=== PATIENT | female | born 1945 | race Caucasian/White ===

== ENCOUNTER 2018-12-29 13:47 | Emergency (ER) | payer MEDICARE ==
[2018-12-29 14:54] LABS: INR-International Normal Ratio 2.3; Prothrombin Time 25.1 SEC (12.0-14.7)
== END 2018-12-29 15:10 | disposition home or self-care (01) ==
LOC: ERS 13:47
DX: R79.1 Abnormal coagulation profile (principal); I48.91 Unspecified atrial fibrillation; J44.9 Chronic obstructive pulmonary disease, unspecified; K58.9 Irritable bowel syndrome, unspecified
CPT/HCPCS: 36415; 85610; 99283

== ENCOUNTER 2019-02-11 18:07 | Inpatient (IN) | payer MEDICARE ==
[~2019-02-11 18:07] MED LIST: Iopamidol 300 61% 100 ML VIAL FS ONE
[2019-02-11] MEDS ORDERED: Ondansetron PF 4 MG/2 ML Vial ONE (18:44)
[2019-02-11] MEDS ORDERED: Morphine 4 MG/ML VIAL ONE (18:44)
--- NOTE | 2019-02-11 19:25 | RAD ---
FRONTAL RADIOGRAPH CHEST: 02/11/2019 HISTORY: Pain and bloating. COMPARISON: None. FINDINGS: Heart and mediastinal contours are grossly unremarkable. No pneumothorax or pleural fluid. No focal consolidation or alveolar edema. IMPRESSION: No acute findings. POS: TUTU
[2019-02-11 19:34] LABS: #Lymphocytes 0.9 thou/uL (1.20-3.40); #Monocytes 0.3 thou/uL (0.11-0.59); #Neutrophils 4.8 thou/uL (1.40-6.50); %Basophils 0.5 % (0.0-1.0); %Eosinophils 0.3 % (0.0-10.0); %Lymphocytes 15.6 % (21.0-51.0); %Monocytes 4.2 % (0.0-10.0); %Neutrophils 79.4 % (42.0-75.0); Hemoglobin 10.4 g/dL (12.0-16.0); Mean Corpuscular HGB CONC 30.9 g/dL (32.0-36.0); Mean Corpuscular Hemoglobin 29.3 pg (27.0-31.0); Mean Corpuscular Volume 94.8 fL (78.0-98.0); Mean Platelet Volume 7.3 fL (7.4-10.4); Platelet Count 232 thou/uL (130-400); Red Blood Cell (RBC) Count 3.53 mill/uL (4.20-5.40)
[2019-02-11 19:43] LABS: ALT (SGPT) 37 U/L (8-55); AST (SGOT) 45 U/L (5-34); Albumin 3.9 g/dL (3.4-4.8); Alkaline Phosphatase 77 U/L (40-150); Anion Gap 18 mmol/L (10-20); BUN (Urea Nitrogen) 10 mg/dL (9.8-20.1); Bilirubin, Total 0.4 mg/dL (0.2-1.2); Calc. Creatinine Clearance 0 mL/min (70-130); Calcium 8.9 mg/dL (7.8-10.44); Carbon Dioxide 26 mmol/L (23-31); Chloride 107 mmol/L (98-107); Estimated GFR-MDRD 65; Globulin 2.7 g/dL (2.4-3.5); Glucose 141 mg/dL (83-110); Lipase 39 U/L (8-78); Potassium 3.6 mmol/L (3.5-5.1); Protein, Total 6.6 g/dL (6.0-8.3); Sodium 147 mmol/L (136-145)
[2019-02-11 19:44] LABS: PTT 22.4 SEC (22.9-36.1); Prothrombin Time 13.6 SEC (12.0-14.7)
--- NOTE | 2019-02-11 21:34 | CT ---
CT OF THE ABDOMEN AND PELVIS WITH IV CONTRAST INDICATION: Abdominal pain and nausea after EGD and colonoscopy today; history of gastric bypass COMPARISON: None FINDINGS: ABDOMEN: Lung bases: There is bibasilar atelectasis more prominent within the right middle lobe. Liver: The gallbladder is surgically absent. There is moderate intrahepatic and extra hepatic biliary ductal dilatation. Gallbladder: Surgically absent Pancreas: Normal. Adrenal glands: Normal. Spleen: There is a large perisplenic hematoma measuring 8.5 x 10.2 cm. There is active extravasation along the superior lateral margin of this lesion. Kidneys: Normal. Retroperitoneum of the upper abdomen: No lymphadenopathy or free fluid is identified. Pelvis: Small and large bowel: There is postsurgical change of a gastric bypass. Bladder: Normal. Rectal and perirectal soft tissues:Normal. Reproductive structures: Not visualized Free fluid in pelvis: There is moderate amount of mildly hypodense fluid in the abdomen and pelvis. I ts relative density is 9 Hounsfield units. Lymphadenopathy pelvis: No lymphadenopathy is evident. Osseous structures: No acute osseous abnormality. No destructive osteolytic or osteoblastic lesion i s identified. There is scattered degenerative and osteoarthritic changes. Mild thoracolumbar scoliosis. IMPRESSION: 1. Large perisplenic hematoma with active extravasation. Findings called to Dr. Davidson at 9:25 PM on 2018. 2. Moderate amount of free fluid within the abdomen or pelvis is nonspecific. With its relative densi ty being below 10 this is unlikely to be hemorrhage. 3. Bibasilar atelectasis 4. Cholecystectomy, hysterectomy and gastric bypass.
[2019-02-11 22:15] LABS: #Lymphocytes 0.6 thou/uL (1.20-3.40); #Monocytes 0.4 thou/uL (0.11-0.59); #Neutrophils 8.6 thou/uL (1.40-6.50); %Basophils 0.4 % (0.0-1.0); %Monocytes 3.7 % (0.0-10.0); %Neutrophils 89.9 % (42.0-75.0); Hemoglobin 8.4 g/dL (12.0-16.0); Mean Corpuscular HGB CONC 32.4 g/dL (32.0-36.0); Mean Corpuscular Hemoglobin 29.6 pg (27.0-31.0); Mean Corpuscular Volume 91.3 fL (78.0-98.0); Mean Platelet Volume 8.4 fL (7.4-10.4); Platelet Count 225 thou/uL (130-400); RBC Distribution Width 16.3 % (11.5-14.5); Red Blood Cell (RBC) Count 2.85 mill/uL (4.20-5.40); White Blood Cell (WBC) Count 9.6 thou/uL (4.8-10.8)
[2019-02-11 23:27] LABS: Lactic Acid 2.8 mmol/L (0.5-2.2)
[2019-02-12] MEDS ORDERED: Ondansetron PF 4 MG/2 ML Vial IVP PRN ×3 (00:52→07:50)
[2019-02-12] MEDS ORDERED: Morphine 2 MG/ML SYRINGE SLOW IVP PRN ×2 (00:52→08:57)
[2019-02-12 01:00] VITALS: BP 142/80; BMI 26.6
[2019-02-12] MEDS ORDERED: Dextrose 5 %-0.45 % NaCl 1,000 ML IV SCH (01:00)
[2019-02-12 02:40] LABS: Hemoglobin 7.8 g/dL (12.0-16.0)
[2019-02-12 05:20] LABS: #Lymphocytes 0.5 thou/uL (1.20-3.40); #Monocytes 0.3 thou/uL (0.11-0.59); #Neutrophils 5.9 thou/uL (1.40-6.50); %Basophils 0.3 % (0.0-1.0); %Eosinophils 0.3 % (0.0-10.0); %Lymphocytes 7.7 % (21.0-51.0); %Monocytes 4.3 % (0.0-10.0); %Neutrophils 87.4 % (42.0-75.0); Hemoglobin 7.1 g/dL (12.0-16.0); Mean Corpuscular HGB CONC 32.3 g/dL (32.0-36.0); Mean Corpuscular Hemoglobin 30.1 pg (27.0-31.0); Mean Corpuscular Volume 93.1 fL (78.0-98.0); Mean Platelet Volume 8.6 fL (7.4-10.4); Platelet Count 191 thou/uL (130-400); RBC Distribution Width 15.8 % (11.5-14.5); Red Blood Cell (RBC) Count 2.35 mill/uL (4.20-5.40); White Blood Cell (WBC) Count 6.8 thou/uL (4.8-10.8)
[2019-02-12] MEDS ORDERED: Acetaminophen 1,000 MG in Premix Bag 1 BAG IVPB PRN ×2 (06:28→07:46)
[2019-02-12] MEDS ORDERED: Acetaminophen 1,000 MG in Premix Bag 1 BAG IVPB SCH (06:30)
[2019-02-12] MEDS ORDERED: Morphine 4 MG/ML VIAL SLOW IVP PRN (07:43)
[2019-02-12] MEDS ORDERED: Ondansetron ODT 4 MG TAB PO PRN (07:43)
[2019-02-12] MEDS ORDERED: Ondansetron ORAL SOLN. 4 MG/5 ML UDCUP PO PRN (07:43)
[2019-02-12] MEDS ORDERED: Ondansetron ODT 8 MG TAB PO PRN (07:43)
[2019-02-12] MEDS ORDERED: Ondansetron ODT 8 MG TAB SL PRN (07:43)
[2019-02-12] MEDS ORDERED: Ketorolac Tromethamine 30 MG/ML VIAL IVP PRN (07:46)
[2019-02-12] MEDS ORDERED: Multivit, Adult Inj 10 ML VIAL IV SCH (09:00)
[2019-02-12] MEDS ORDERED: Iopamidol 370 76% 100 ML VIAL ONE (09:09)
--- NOTE | 2019-02-12 09:16 | CON ---
DATE OF CONSULTATION: 02/11/2019 REASON FOR CONSULT: Splenic hematoma post procedure. HISTORY OF PRESENT ILLNESS: Ms. Diaz is a pleasant 73-year-old female, most history comes from talking with her [id number] and son. Ms. Diaz underwent an EGD and colonoscopy today with Dr. Abad for chronic diarrhea. She carried a previous diagnosis of irritable bowel with diarrhea predominant and saw him in January with regard to worsening symptoms despite being on Colestid. Her last colonoscopy had been over 2 years ago. An upper endoscopy with lower endoscopy was performed to evaluate her diarrhea and for colorectal cancer screening, anticipation of possibly changing her medical regimen. She underwent the procedure today and after procedure, in a pain, they came to the emergency room this evening and she initially had a chest x-ray and CAT scan at 1823 hours. The chest x-ray was normal. CAT scan showed splenic hematoma with perisplenic hematoma and some active oozing from the superior lateral margin of the spleen. Hematoma measured 8 x 10 cm. There was some fluid in the pelvis as well. Radiologist felt a small amount of fluid in the abdomen and pelvis, was nonspecific, and with low density below 10, also did not think it was hemorrhage. She also had change consistent of gastric bypass. Her vital signs have been stable since presentation here at the emergency room. Hemoglobin was 12.6 on 01/29 and it was 10.4 on presentation and at 2153 hours, it is 8.4. Platelet count was 225. White count was 9.6. Her INR was 1. She had been on Coumadin for atrial fibrillation but that had been held for the procedure. She had one dose this evening when she got home, however. Sodium 147, potassium 3.6, BUN and creatinine are 10 and 0.85. LFTs are normal. TSH on 01/29/2019, was 29. 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 She is hypothyroid from previous thyroid removal. Her TSH was high in January and her thyroid dose was increased. Mild dementia. PAST SURGICAL HISTORY: Includes tonsillectomy, thyroidectomy for cancer in 1967, bladder suspension in 1974, breast biopsy benign in 1979, D and C in 1986, hysterectomy in 1988, left breast biopsy negative in 1990, gallbladder removal in 1991, neuroma of the right foot removed in 1994, gastric bypass in 2000, total right knee replacement in 2010, parathyroid adenoma removed in 2010, bladder sling in 2016, infection in the right knee with revision surgery of that knee replacement in 2018. Removed cataract from right eye in 2019. ALLERGIES: , LUCAS INHIBITORS, AND MOUNTAIN CEDAR. PROCEDURES: Colonoscopy in 2013 and 2019, heart catheterization in 2013, and doppler carotid in 2015. IMMUNIZATIONS: Up-to-date with pneumonia and PCV13 and flu shots. PRESCRIPTION MEDICATIONS: 1. Synthroid was increased from 112 to 175. 2. Cholestyramine 4 g daily. 3. Potassium chloride. 4. Losartan 25 mg daily. 5. Metoprolol 25 mg daily. 6. Warfarin 7.5 mg, has been held. 7. Loperamide p.r.n. 8. Multivitamin. 9. Pravastatin. 10. Magnesium. 11. Donepezil. 12. Montelukast. 13. Zyrtec. 14. Uses Symbicort p.r.n. and melatonin at night as needed. FAMILY HISTORY: Negative for colorectal cancer or liver disease. SOCIAL HISTORY: The patient denies smoking. No alcohol. PHYSICAL EXAMINATION: GENERAL: The patient is resting in bed. She appears pale. Her family notes that this is her normal appearance. VITAL SIGNS: Her pulse is 90, blood pressures 120s over 80s. She has one IV in place with IV fluid hanging. She is alert and oriented. HEENT: Oropharynx, no lesions. Conjunctivae are slightly pale. NECK: Supple without adenopathy. LUNGS: Clear. HEART: Irregular rate and rhythm with no murmurs. ABDOMEN: Soft. She is tender in the upper abdomen with some voluntary guarding. There is no rebound. Bowel sounds are positive. EXTREMITIES: Reveal trace edema. SKIN: Warm and dry. IMAGING DATA: CAT scan films reviewed by myself, report as noted in [place] and the HPI above. Films were reviewed with General Surgery and discussed with Dr. Gandhi, who is on-call tonight. LABORATORY DATA: As per HPI above. ASSESSMENT: 1. Splenic hematoma, likely complication from colonoscopy earlier today with perisplenic hematoma and fluid in the pelvis, which radiologist does not feel blood but very likely could be. She is hemodynamically stable and has been so since arrival here in the emergency room. Her hemoglobin has dropped to 8.4 from 10.4 on arrival, was 12.6 on 01/29/2019. Platelets are stable. INR is normal. I have discussed with General Surgery the fact that there was some active extravasation of contrast at the edge of the spleen and notes that at this point in time, observation, this will course of action will move her admission from the floor to the ICU or IMU depending on bed availability in any of those units. We will plan to check serial H and Hs every 4 hours. She has been typed and crossed. If she is hemodynamically unstable or drops hemoglobin lower than 7, she will need transfusion. I have discussed this with the patient and family. Also discussed potential need for surgery if she continues to have bleeding and which would require splenectomy. 2. History of atrial fibrillation, previously on anticoagulation. This was held for endoscopy and her INR is 1 at this time. We will recheck this in the morning. 3. Hypothyroidism with recent dose adjustment of TSH based on a TSH of 24 about a month ago. 4. Mild dementia. 5. Chronic diarrhea, for which her endoscopies were done. GI Service will follow along during this admission. She is being admitted to Dr. Gandhi of General Surgery. Job ID: [id number]
--- NOTE | 2019-02-12 09:34 | HP ---
HISTORY OF PRESENT ILLNESS: Emily Diaz is a 73-year-old female who in the last 2 to 3 months has moved from [facility] to live with her family. Her grlpsdib-kd-dqb and son live in [place]. They were working full-time and students. The patient is on Coumadin for atrial fibrillation, but has held that in preparation for upper and lower endoscopy performed by Dr. Abad yesterday morning. After the procedure, the patient was having some pain. Apparently, it was observed in the [facility], then sent home. She began having more pain and presented to the emergency room in [place] late afternoon at 4 or 5 p.m., and apparently by 9 p.m., she finished a CAT scan with oral IV contrast, noting perisplenic hematoma. Her hemoglobin was 10.4. Since observation, by this morning has dropped down to 7.1. Her vital signs have been stable. She states she is not having any pain as long as she lays still. She has had some nausea and suffered anorexia, but not had any vomiting. She has been admitted to the [facility]. Last night, Dr. Degroot saw her in [place] [facility] before being transferred to the [facility]. Her vital signs as noted above, have been stable. This morning, temperature 98.4 degrees, heart rate 100, respiratory rate 14, blood pressure 142/80, and she has not received any blood transfusions. ALLERGIES: LUCAS INHIBITORS AND . SOCIAL HISTORY: Tobacco, none. Alcohol, none. MEDICATIONS: 1. Synthroid 175 mcg a day. 2. Cholestyramine daily. 3. Potassium chloride 10 mEq ER tab twice daily. 4. Losartan 25 mg a day. 5. Metoprolol 25 mg a day. 6. Coumadin 7.5 mg a day. 7. Loperamide as needed. 8. Multivitamins daily. 9. Pravastatin 10 mg at bedtime. 10. Magnesium 250 daily. 11. Donepezil 10 mg two at night. Apparently, wean off this as a lasting hydrochloride twice a day. 12. Breo Ellipta 100 mcg once daily. 13. Zyrtec daily. 14. Symbicort spray as needed. PAST MEDICAL HISTORY: 1. Mitral valve prolapse, atrial fibrillation. She has been followed by mold tooling technician. Apparently, had a stress test in the past that had been negative. She has been seeing Dr. Palma locally, and she states they are planning a stress test in the future. She denies any cardiac symptomatology. 2. Atrial fibrillation since 2012. 3. TIA in May 2015. 4. History of shingles. 5. History of hypoglycemia. PROCEDURES: 1. Colonoscopy, upper endoscopy in 2018. 2. Mammogram in 2013. 3. Pap smear in June 2010. 4. Bone density in 2013. 5. Pneumonia shot in April 2010. 6. Cardiac catheterization in February 2014 that was told there was no significant disease. 7. Doppler carotids in 2015, no flow-limiting disease according to her. PAST SURGICAL HISTORY: Tonsillectomy and adenoidectomy in 1949 and 1967. Thyroidectomy, total over several operations for thyroid cancer in 1974. Bladder suspension in 1979. Biopsy, left breast, benign, in 1986. D and C in 1988. Hysterectomy, BSO in 1990. Biopsy, left breast, negative in 1991. Cholecystectomy, laparoscopic, in 1994. Neuroma, right foot, removal in 2000. Gastric bypass, laparoscopically, lost from 300 pounds to her current weight of 150 pounds when she has maintained. Total right knee replacement, removal of parathyroid adenoma in 2010. Bladder sling in 2016. Revision surgery, right knee, due to infection. Cataract in 2019, right eye. REVIEW OF SYSTEMS: Ten-point noncontributory. PHYSICAL EXAMINATION: VITAL SIGNS: Temperature 98.4, blood pressure 142/80. HEAD, EYES, EARS, NOSE, AND THROAT: Unremarkable. LUNGS: Clear to auscultation. CARDIAC: Regular rate and rhythm. No murmur or gallop. ABDOMEN: Soft, nondistended. No hernias. Laparoscopic scars as noted above consistent with above-mentioned surgeries. Mild tenderness, left abdomen with mild guarding. Deep palpation. No rebound. EXTREMITIES: Unremarkable. No ankle edema. NEUROLOGIC: Intact. Alert and oriented x3. DIAGNOSTIC STUDIES: LABORATORY RESULTS: Sodium 147, potassium 3.6, carbon dioxide 26, BUN 10, creatinine 0.85, and glucose 141. Liver function tests are normal. Hemoglobin admission was 10.4, is 7.1 today. No prior labs in our system. ASSESSMENT AND PLAN: 1. Splenic bleeding, secondary to colonoscopy. Continue relative bedrest. May have bathroom privileges at bedside commode. Observe serial hemoglobins. Hopefully, we can avoid an operation. There are no indications of colon perforation. Antibiotics are not necessary. We would continue to monitor hemoglobin. Considerations for embolization can be given if there is evidence of continued bleeding. She may need a transfusion, but at this time she does not. We will keep her n.p.o. except for ice chips given her medications as necessary, holding her antihypertensive, but given her beta annie. Of course, we will hold her Coumadin. Her INR was normal last night. She took one dose of Coumadin yesterday after the procedure, but has been held since INR is normal. 2. Atrial fibrillation, followed by Dr. Palma. No evidence of problems currently. 3. History of gastric bypass. 4. Hypothyroidism, treated medically. 5. Irritable bowel syndrome. 6. History of meningioma. Job ID: [id number]
[2019-02-12 09:46] LABS: Hemoglobin 7.3 g/dL (12.0-16.0)
[2019-02-12] MEDS: Multivitamins, Adult 10 ML in D5 1/2 NS w/20 mEq KCL 1,000 ML IV SCH (09:53)
[2019-02-12] MEDS: Pantoprazole 40 MG VIAL IVP SCH (09:55)
[2019-02-12] MEDS: D5 1/2 NS w/20 mEq KCL 1,000 ML IV SCH ×2 (10:12→20:00)
[2019-02-12 13:23] LABS: Hemoglobin 6.4 g/dL (12.0-16.0)
--- NOTE | 2019-02-12 14:16 | PRG ---
DATE OF SERVICE: 02/12/2019 SUBJECTIVE: Ms. Diaz is feeling pretty well today. She has remained hemodynamically stable. She denies any abdominal pain, though she has not been moving around much. There has been no vomiting. Her hemoglobin continued to decline overnight, but seemed to stabilize this morning, trended down to 7.8 at 2:00 a.m., then 7.1 at 5:00 a.m., now 7.3. Repeat blood draw is pending. Dr. Gandhi has seen the patient and has opted for observation for now. She has not required transfusion as yet. OBJECTIVE: VITAL SIGNS: Temperature 98.0, pulse 75, blood pressure 109/65, and 100% oxygen saturation on room air. GENERAL: No acute distress. HEART: Regular rate and rhythm. LUNGS: Clear to auscultation bilaterally. ABDOMEN: Mild tenderness to palpation in the left upper quadrant, but no guarding or rebound tenderness. Bowel sounds are present. EXTREMITIES: No peripheral edema. LABORATORY STUDIES: Hemoglobin trended down to 7.3 as of 9:30 a.m. this morning , hematocrit 22.6, WBC 6.8, platelets 191. INR 1.0. Sodium 147, potassium 3.6, BUN 10, creatinine 0.85. Lactic acid 2.8, glucose 150, total bilirubin 0.4, alkaline phosphatase 77, AST 45, ALT 37, and lipase 39. IMAGING STUDIES: CT of the abdomen and pelvis yesterday evening on admission demonstrated large perisplenic hematoma measuring 8.5 x 10.2 cm. There was evidence of active extravasation along the superior lateral margin of the lesion. There was a moderate amount of free fluid in the pelvis, but with low relative density felt unlikely to be hemorrhage. There was no evidence of free air or perforation. ASSESSMENT AND PLAN: 1. Splenic injury, secondary to diagnostic colonoscopy performed yesterday. 2. Acute blood loss anemia, secondary to bleeding with perisplenic hematoma. I appreciate the assistance of Dr. Gandhi, who is following along closely as well. The patient has had significant blood loss with overall decline in hemoglobin from 12.5 a couple of weeks ago, to 10.6 on admission, down to 7.3 this morning. Hopefully, the hemoglobin and hematocrit will continue to be stable, but continue to watch very closely, monitor every 4 hours. I would favor transfusion if hemoglobin were to further decline significantly. If the patient has continued decline in hemoglobin or were to develop any hemodynamic instability or worsening symptoms, I think splenectomy or embolization might be necessary. Otherwise, continue close observation. We will discuss with Dr. Gandhi. I spoke on the phone with the patient's [id number], Elodia, as well. Please call anytime with questions or concerns or changes in the patient's clinical status. Job ID: [id number] MTDD
[2019-02-12] MEDS ORDERED: Lidocaine 1% (PF) 30 ML VIAL ONE (15:44)
--- NOTE | 2019-02-12 18:36 | PRG ---
DATE OF SERVICE: 02/12/2019 Today, Emily Diaz's hemoglobin had drifted down to 6.4. Her vital signs remained stable. Heart rate 68, blood pressure 105 to 110 systolic. The patient reports decreased pain. She denies any other symptoms. She has been essentially bedrest since this event. Abdomen remains soft. I discussed with the patient and then with the patient's daughter, Gabi Umana, , her condition, explained the situation. With her ongoing diminishing progressive hemoglobin from splenic bleeding after colonoscopy, Dr. Ayers was consulted to perform interventional embolization of the spleen. The patient and family are agreeable. The patient will be given 1 unit of blood during the procedure and will continue to monitor hemoglobin. Job ID: [id number]
[2019-02-12 19:21] LABS: Hemoglobin 8.5 g/dL (12.0-16.0)
[2019-02-12] MEDS ORDERED: Prevnar 13-Val Conj/PF 0.5 ML SYRINGE IM ONE (21:00)
[2019-02-12 23:58] LABS: Hemoglobin 7.8 g/dL (12.0-16.0)
[2019-02-13 06:26] LABS: #Lymphocytes 1.2 thou/uL (1.20-3.40); #Monocytes 0.4 thou/uL (0.11-0.59); #Neutrophils 3.7 thou/uL (1.40-6.50); %Basophils 0.2 % (0.0-1.0); %Eosinophils 0.6 % (0.0-10.0); %Monocytes 7.4 % (0.0-10.0); %Neutrophils 68.8 % (42.0-75.0); Mean Corpuscular Hemoglobin 30.6 pg (27.0-31.0); Mean Corpuscular Volume 90.2 fL (78.0-98.0); Mean Platelet Volume 8.3 fL (7.4-10.4); Platelet Count 156 thou/uL (130-400); RBC Distribution Width 16.8 % (11.5-14.5); Red Blood Cell (RBC) Count 2.62 mill/uL (4.20-5.40); White Blood Cell (WBC) Count 5.4 thou/uL (4.8-10.8)
[2019-02-13 06:47] LABS: ALT (SGPT) 21 U/L (8-55); AST (SGOT) 26 U/L (5-34); Albumin 3.5 g/dL (3.4-4.8); Alkaline Phosphatase 67 U/L (40-150); Anion Gap 12 mmol/L (10-20); BUN (Urea Nitrogen) 8 mg/dL (9.8-20.1); Bilirubin, Total 0.5 mg/dL (0.2-1.2); Calc. Creatinine Clearance 69 mL/min (70-130); Calcium 8.4 mg/dL (7.8-10.44); Carbon Dioxide 26 mmol/L (23-31); Chloride 107 mmol/L (98-107); Estimated GFR-MDRD 70; Glucose 153 mg/dL (83-110); Magnesium 1.5 mg/dL (1.6-2.6); Phosphorus 2.4 mg/dL (2.3-4.7); Potassium 3.6 mmol/L (3.5-5.1); Protein, Total 5.5 g/dL (6.0-8.3); Sodium 141 mmol/L (136-145)
[2019-02-13] MEDS: Levothyroxine 175 MCG TAB PO SCH (06:50)
[2019-02-13] MEDS: D5 1/2 NS w/20 mEq KCL 1,000 ML IV SCH (06:50)
[2019-02-13] MEDS: Pantoprazole 40 MG VIAL IVP SCH (08:53)
[2019-02-13] MEDS ORDERED: Non-Formulary Item 1 EACH (Budesonide-Formoterol [Symbicort 160-4.5] 1 PUFF) INH PRN (09:49)
--- NOTE | 2019-02-13 09:50 | OP ---
DATE OF PROCEDURE: 02/12/2019 PREOPERATIVE DIAGNOSIS: Splenic rupture. PROCEDURE: Abdominal aortogram, celiac and selective splenic artery angiograms, and coil embolization of the main splenic artery using 3 x 6 coils x3 and a 4 x 8 coil x1. ANESTHESIA: Local. DESCRIPTION OF PROCEDURE: After prepping and draping, ultrasound-guided puncture of the common femoral artery was carried out. A 5-Greenlandic dilator and sheath were placed under fluoroscopic guidance following which a Contra catheter was used in AP and lateral projections to delineate the celiac and superior mesenteric artery trunks, both of which were widely patent. Following this, the Contra catheter and Glidewire were used to selectively cannulate the celiac artery. This was abandoned after dislocation and a MESFIN catheter was used to selectively cannulate the celiac artery. A Direxion catheter was then advanced through the MESFIN catheter as far as it would go through a very tortuous and elongated splenic artery. A 0.014 Luge and 0.014 floppy were used to advance the Direxion catheter slightly farther. However, it would not advanced distally due to kicking back of the MESFIN catheter. At that time, it was elected with no obvious extravasation to go ahead and embolize the main splenic artery, which was done with interlock coils as noted above. Completion angiography showed good flow through the hepatic artery and continued flow through the splenic artery. The patient tolerated the procedure well with fluoroscopy of 13.8 minutes. CONTRAST: 28 mL. Job ID: [id number]
--- NOTE | 2019-02-13 10:04 | PRG ---
DATE OF SERVICE: 02/13/2019 SUBJECTIVE: Ms. Diaz underwent splenic artery embolization yesterday afternoon with Dr. Ayers. She reports this morning that she is not having any pain. She tolerated a full liquid breakfast and wants more solid food. Her hemoglobin this morning is 8. She received 1 unit of blood yesterday. After that 1 unit of blood, her hemoglobin was 7.8, and as stated above at 8 this morning, white count 5.4. Renal function is normal. OBJECTIVE: LUNGS: Clear to auscultation. CARDIAC: Regular rate and rhythm. No murmur or gallop. ABDOMEN: Soft, nontender. EXTREMITIES: Unremarkable. ASSESSMENT AND PLAN: A splenic bleeding after colonoscopy, status post embolization of the spleen. We will increase her diet today, increase her activities about the room. Hopefully, she can be discharged home in the next 24 to 48 hours. Hemoglobin seems to be stable at this point. Job ID: [id number]
--- NOTE | 2019-02-13 13:03 | PRG ---
DATE OF SERVICE: 02/13/2019 SUBJECTIVE: Ms. Diaz went for splenic artery embolization yesterday with Dr. Ayers. There was no active extravasation noted. The splenic artery was quite tortuous. Four coils were placed with good result. She received 1 unit of blood yesterday and hemoglobin came up from 6.4 to 7.8 and is stable this morning at 8.0. She remains hemodynamically stable. She is now asymptomatic with no abdominal pain. She is tolerating her regular diet without any nausea or vomiting. She did have a bowel movement. OBJECTIVE: VITAL SIGNS: Temperature 99.2, pulse 82, 100% oxygen saturation on room air. GENERAL: No acute distress. HEART: Regular rate and rhythm. LUNGS: Clear to auscultation bilaterally. ABDOMEN: Soft, nontender. EXTREMITIES: No peripheral edema. LABORATORY STUDIES: Hemoglobin 8.0, stable from last night; WBC 5.4; platelets 156. INR 1.0. Sodium 141, potassium 3.6, BUN 8, creatinine 0.80, total bilirubin 0.5, alkaline phosphatase 67, AST 26, ALT 21, albumin 3.5. TSH 39.97. ASSESSMENT AND PLAN: 1. Splenic injury, secondary to diagnostic colonoscopy performed on 02/11/2019. 2. Acute blood loss anemia, secondary to bleeding with perisplenic hematoma. After 1 unit of RBC transfusion yesterday, hemoglobin appears stable today. I greatly appreciate the assistance of Dr. Gandhi and Dr. Ayers. Following splenic artery embolization yesterday, I see no evidence of continued bleeding, but certainly agree with continued observation and monitoring of hemoglobin and hematocrit. Hopefully, the patient could be discharged in the next 24 to 48 hours if everything remains stable tomorrow. I spoke with the patient as well as her daughter on the phone today. The patient needs to avoid any heavy exertion or any activities with the potential for any abdominal trauma over the next few weeks. She will be restarting her anticoagulation once hemoglobin has been stable for a few days. 3. We are also awaiting stool studies and biopsy results from her colon biopsies. We will communicate those results to the patient when they are available. Job ID: [id number]
[2019-02-13] MEDS ORDERED: Loperamide HCl 2 MG CAP PO PRN (14:44)
[2019-02-13 16:34] LABS: Hemoglobin 7.8 g/dL (12.0-16.0)
[2019-02-13] MEDS: Multivitamins, Adult 10 ML in D5 1/2 NS w/20 mEq KCL 1,000 ML IV SCH (18:21)
[2019-02-13] MEDS: Mometasone/Formoterol 120 PUFF INHALER INH SCH (18:56)
[2019-02-13] MEDS: Pravastatin Sodium 20 MG TAB PO SCH (20:25)
[2019-02-13] MEDS: Donepezil HCl 10 MG TAB PO SCH (20:25)
[2019-02-13] MEDS: Azelastine 137 MCG/Spray 30 ML NS SCH (20:56)
[2019-02-13] MEDS ORDERED: Donepezil HCl 10 MG TAB PO SCH (21:00)
[2019-02-13] MEDS ORDERED: AZELASTINE HCL EA NARE SCH (21:00)
[2019-02-13 22:10] LABS: Hemoglobin 8.3 g/dL (12.0-16.0)
[2019-02-14 05:03] LABS: #Monocytes 0.4 thou/uL (0.11-0.59); #Neutrophils 3.3 thou/uL (1.40-6.50); %Basophils 0.6 % (0.0-1.0); %Eosinophils 0.9 % (0.0-10.0); %Lymphocytes 20.8 % (21.0-51.0); %Monocytes 9.1 % (0.0-10.0); %Neutrophils 68.6 % (42.0-75.0); Hemoglobin 7.1 g/dL (12.0-16.0); Mean Corpuscular Volume 90.9 fL (78.0-98.0); Mean Platelet Volume 8.9 fL (7.4-10.4); Platelet Count 142 thou/uL (130-400); RBC Distribution Width 16.5 % (11.5-14.5); Red Blood Cell (RBC) Count 2.36 mill/uL (4.20-5.40); White Blood Cell (WBC) Count 4.7 thou/uL (4.8-10.8)
[2019-02-14] MEDS: Levothyroxine 175 MCG TAB PO SCH (05:03)
[2019-02-14 05:19] LABS: ALT (SGPT) 16 U/L (8-55); AST (SGOT) 25 U/L (5-34); Albumin 3.2 g/dL (3.4-4.8); Alkaline Phosphatase 63 U/L (40-150); Anion Gap 9 mmol/L (10-20); BUN (Urea Nitrogen) 5 mg/dL (9.8-20.1); Bilirubin, Total 0.5 mg/dL (0.2-1.2); Calc. Creatinine Clearance 70 mL/min (70-130); Calcium 8.4 mg/dL (7.8-10.44); Carbon Dioxide 31 mmol/L (23-31); Chloride 102 mmol/L (98-107); Estimated GFR-MDRD 77; Glucose 92 mg/dL (83-110); Protein, Total 5.2 g/dL (6.0-8.3); Sodium 139 mmol/L (136-145)
[2019-02-14 05:24] LABS: Potassium 2.7 mmol/L (3.5-5.1)
[2019-02-14] MEDS: Potassium Chloride 10 MEQ TAB PO SCH (05:51)
[2019-02-14] MEDS: Mometasone/Formoterol 120 PUFF INHALER INH SCH ×2 (07:25→19:03)
[2019-02-14] MEDS ORDERED: Levothyroxine 175 MCG TAB PO SCH (09:00)
[2019-02-14] MEDS ORDERED: Non-Formulary Item 1 EACH (Magnesium [Magnesium] 250 MG) PO SCH (09:00)
[2019-02-14] MEDS ORDERED: Non-Formulary Item 1 EACH (Cholestyramine (With Sugar) [Cholestyramine Packet] 1 PACKET) PO SCH (09:00)
[2019-02-14] MEDS ORDERED: Potassium Chloride 20 MEQ TAB PO SCH (09:00)
[2019-02-14] MEDS ORDERED: Potassium Chloride 10 MEQ TAB PO SCH (09:00)
[2019-02-14] MEDS ORDERED: Non-Formulary Item 1 EACH (Fluticasone/Vilanterol [Breo Ellipta] 1 INH) IH SCH (09:00)
[2019-02-14] MEDS ORDERED: Cetirizine HCl 10 MG TAB PO SCH (09:00)
[2019-02-14] MEDS: Loratadine 10 MG TAB PO SCH (09:43)
[2019-02-14] MEDS: Multivit, Therapeutic 1 TAB PO SCH (09:43)
[2019-02-14] MEDS: Montelukast Sodium 10 mg Tablet PO SCH (09:43)
[2019-02-14] MEDS: Losartan 25 MG TAB PO SCH (09:44)
[2019-02-14] MEDS: Magnesium Oxide 250 MG TAB PO SCH (09:44)
[2019-02-14] MEDS: Cholestyramine/Aspartame 4 gm Packet PO SCH (09:44)
[2019-02-14] MEDS: Multivitamins, Adult 10 ML in D5 1/2 NS w/20 mEq KCL 1,000 ML IV SCH (09:44)
[2019-02-14] MEDS: Pantoprazole 40 MG VIAL IVP SCH (09:44)
[2019-02-14] MEDS: Azelastine 137 MCG/Spray 30 ML NS SCH ×2 (09:52→20:23)
[2019-02-14 14:33] LABS: Hemoglobin 8.4 g/dL (12.0-16.0)
--- NOTE | 2019-02-14 16:49 | PRG ---
DATE OF SERVICE: 02/14/2019 SUBJECTIVE: Ms. Diaz is doing well. She is tolerating her regular diet. She has no abdominal pain. She has remained hemodynamically stable, getting up and about from [id number]. PHYSICAL EXAMINATION: VITAL SIGNS: Temperature 99.3, blood pressure 157/80, pulse 91, and oxygen saturation 98% on room air. GENERAL: No acute distress. HEART: Regular rate and rhythm. LUNGS: Clear to auscultation bilaterally. ABDOMEN: Soft and nontender to palpation. EXTREMITIES: No peripheral edema. LABORATORY STUDIES: Hemoglobin yesterday afternoon was 7.8 and 8.3 last night. This morning, it had declined to 7.1, but I think this was a spurious lab as this afternoon, hemoglobin is again 8.4. Hematocrit 25.1, WBC is 4.7, and platelets 142. Sodium 139, potassium 2.7, BUN 5, and creatinine 0.74. LFTs normal. ASSESSMENT AND PLAN: 1. Splenic injury, secondary to diagnostic colonoscopy performed on 02/11/2019. 2. Acute blood loss anemia, secondary to bleeding with perisplenic hematoma. Hemoglobin remains stable today after 1 unit RBC transfusion 2 days ago with splenic artery embolization. I see no evidence of continued bleeding. I have spoken with Dr. Gandhi. Tentative plan is for hospital discharge tomorrow. If everything remains stable, to resume anticoagulation early next week. Still awaiting stool studies and biopsy results from her recent colon biopsies, and we will communicate these results to the patient when they are available. Job ID: [id number]
[2019-02-14] MEDS: Donepezil HCl 10 MG TAB PO SCH (20:23)
[2019-02-14] MEDS: Pravastatin Sodium 20 MG TAB PO SCH (20:24)
--- NOTE | 2019-02-14 21:05 | PRG ---
DATE OF SERVICE: 02/14/2019 SUBJECTIVE: Ms. Diaz is doing well today. She denies any pain. OBJECTIVE: VITAL SIGNS: Temperature 99.5 degrees, blood pressure 154/75, pulse 114, respirations 18. LUNGS: Clear to auscultation. CARDIAC: Regular rate and rhythm. No murmur or gallop. ABDOMEN: Soft and nontender. EXTREMITIES: Unremarkable. She is tolerating her diet. LABORATORY DATA: White count 4.7; hemoglobin 8.4, up from 7.1 this morning, stable from 8.3 last night. Basic metabolic profile is normal. Potassium 2.7, replaced with oral potassium. ASSESSMENT AND PLAN: Doing well after embolization of left spleen for bleeding after colonoscopy. She has received only 1 unit of blood. She is hemodynamically stable. I expect her to be discharged home tomorrow and resume her Eliquis later next week. She will take iron and vitamins at home. Job ID: [id number]
[2019-02-15] MEDS: Levothyroxine 175 MCG TAB PO SCH (05:42)
[2019-02-15 05:58] LABS: #Lymphocytes 0.6 thou/uL (1.20-3.40); #Monocytes 0.3 thou/uL (0.11-0.59); #Neutrophils 3.3 thou/uL (1.40-6.50); %Eosinophils 0.4 % (0.0-10.0); %Lymphocytes 13.8 % (21.0-51.0); %Monocytes 8.1 % (0.0-10.0); %Neutrophils 77.7 % (42.0-75.0); Hemoglobin 8.5 g/dL (12.0-16.0); Mean Corpuscular HGB CONC 33.6 g/dL (32.0-36.0); Mean Corpuscular Hemoglobin 30.6 pg (27.0-31.0); Mean Corpuscular Volume 91.1 fL (78.0-98.0); Mean Platelet Volume 8.1 fL (7.4-10.4); Platelet Count 188 thou/uL (130-400); RBC Distribution Width 16.6 % (11.5-14.5); Red Blood Cell (RBC) Count 2.79 mill/uL (4.20-5.40); White Blood Cell (WBC) Count 4.2 thou/uL (4.8-10.8)
[2019-02-15 06:32] LABS: ALT (SGPT) 18 U/L (8-55); AST (SGOT) 30 U/L (5-34); Albumin 3.6 g/dL (3.4-4.8); Alkaline Phosphatase 73 U/L (40-150); Anion Gap 16 mmol/L (10-20); BUN (Urea Nitrogen) 5 mg/dL (9.8-20.1); Bilirubin, Total 0.9 mg/dL (0.2-1.2); Calc. Creatinine Clearance 68 mL/min (70-130); Calcium 8.7 mg/dL (7.8-10.44); Carbon Dioxide 30 mmol/L (23-31); Chloride 94 mmol/L (98-107); Estimated GFR-MDRD 76; Globulin 2.5 g/dL (2.4-3.5); Glucose 92 mg/dL (83-110); Potassium 3.5 mmol/L (3.5-5.1); Protein, Total 6.1 g/dL (6.0-8.3); Sodium 136 mmol/L (136-145)
[2019-02-15] MEDS: Mometasone/Formoterol 120 PUFF INHALER INH SCH (07:19)
[2019-02-15 07:35] VITALS: TEMP 98.2
[2019-02-15] MEDS ORDERED: Ferrous Sulfate 325 MG TAB PO SCH (08:00)
--- NOTE | 2019-02-15 08:09 | PRG ---
DATE OF SERVICE: 02/15/2019 SUBJECTIVE: Ms. Diaz is doing well today. OBJECTIVE: VITAL SIGNS: Temperature 98.0 degrees, blood pressure 168/88, heart rate 100 to 105. HEAD, EYES, EARS, NOSE, AND THROAT: Unremarkable. LUNGS: Clear to auscultation. CARDIAC: Regular rate and rhythm without murmur or gallop. ABDOMEN: Soft, nontender. EXTREMITIES: Unremarkable. LABORATORY DATA: This morning, her hemoglobin is 8.5 and stable. ASSESSMENT AND PLAN: Status post bleeding from spleen after colonoscopy and embolization of the spleen. The patient's hemoglobin is stable. She can be discharged home today. Resume her home medications. She can resume her Coumadin Monday (three days from now). She will follow up with Dr. Abad and her primary care physician. 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 Job ID: [id number]
[2019-02-15] MEDS: Magnesium Oxide 250 MG TAB PO SCH (08:40)
[2019-02-15] MEDS: Losartan 25 MG TAB PO SCH (08:40)
[2019-02-15] MEDS: Multivit, Therapeutic 1 TAB PO SCH (08:40)
[2019-02-15] MEDS: Loratadine 10 MG TAB PO SCH (08:40)
[2019-02-15] MEDS: Potassium Chloride 10 MEQ TAB PO SCH (08:41)
[2019-02-15] MEDS: Cholestyramine/Aspartame 4 gm Packet PO SCH (08:41)
[2019-02-15] MEDS: Montelukast Sodium 10 mg Tablet PO SCH (08:41)
[2019-02-15] MEDS: Azelastine 137 MCG/Spray 30 ML NS SCH (08:42)
[2019-02-15] MEDS ORDERED: Meningococcal Vaccine 0.5ML VIAL (MENACTRA) IM ONE (09:00)
[2019-02-15] MEDS ORDERED: Haemoph B Posysac Conj-Meng 0.5 ML VIAL IM ONE (09:00)
[2019-02-15] MEDS: Multivitamins, Adult 10 ML in D5 1/2 NS w/20 mEq KCL 1,000 ML IV SCH (09:07)
[2019-02-15] MEDS ORDERED: Acthib 0.5 ML VIAL IM ONE (10:00)
--- NOTE | 2019-02-16 05:06 | DIS ---
DATE OF ADMISSION: 02/11/2019 DATE OF DISCHARGE: 02/15/2019 DISCHARGE DIAGNOSES: 1. Post colonoscopy splenic bleeding. 2. Atrial fibrillation on Coumadin. PROCEDURES THIS HOSPITALIZATION: CT scan of the abdomen and pelvis. Observation, IMCU. CONSULTATION: Dr. Ayers, CV Surgery for embolization of her spleen. Transfusion of 1 unit of blood. Discharge hemoglobin 8.5. Other diagnoses preoperatively include dementia and atrial fibrillation. HISTORY AND HOSPITAL COURSE: A 73-year-old female, who had a colonoscopy with Dr. Abad. This was uneventful. After the procedure, the patient was having pain, observed at the endoscopy center, seemed to be stable, sent home; reported later that evening for abdominal pain to [facility], [facility]. She was found to have a hemoglobin of 10. CAT scan revealed perisplenic blood. She was transferred and observed in IMCU, continued to drop her hemoglobin over serial H and Hs to 6.4. Dr. Ayers was consulted and coil embolization of her spleen and splenic artery was performed. She had a very tortuous artery. Postprocedure, the patient's hemoglobin stabilized and after 1 unit of blood, it did remain stable at 8.1 to 8.4. She will receive post splenectomy vaccinations prior to discharge. She will resume her Coumadin in 3 days. She will follow up with Dr. Abad and her primary care physician. During the course of this hospitalization, this patient remained with a normal heart rate, hemodynamically stable, and was not in atrial fibrillation. She had abdominal pain on admission, but this resolved, and was pain free and without tenderness on discharge. She will resume her home medications except for the Coumadin, which she will resume in 3 days. Job ID: [id number]
== END 2019-02-15 11:26 | disposition home or self-care (01) | DRG 908 ==
LOC: SCSER 18:07 → IMCU/EMU 22:51
PROVIDERS: ADMIT Specialist; ATTEND Specialist
PROC: 04L43DZ Occlusion of Splenic Artery with Intraluminal Device, Percutaneous Approach (ICD-10-PCS; principal; 2019-02-12)
PROC: B41D1ZZ Fluoroscopy of Aorta and Bilateral Lower Extremity Arteries using Low Osmolar Contrast (ICD-10-PCS; 2019-02-12)
PROC: B4131ZZ Fluoroscopy of Splenic Arteries using Low Osmolar Contrast (ICD-10-PCS; 2019-02-12)
DX: K91.840 Postprocedural hemorrhage of a digestive system organ or structure following a digestive system procedure (principal); E87.0 Hyperosmolality and hypernatremia; D62 Acute posthemorrhagic anemia; Y83.9 Surgical procedure, unspecified as the cause of abnormal reaction of the patient, or of later complication, without mention of misadventure at the time of the procedure; I48.91 Unspecified atrial fibrillation; F03.90 Unspecified dementia, unspecified severity, without behavioral disturbance, psychotic disturbance, mood disturbance, and anxiety; Z96.651 Presence of right artificial knee joint; K58.9 Irritable bowel syndrome, unspecified; D64.9 Anemia, unspecified; D32.9 Benign neoplasm of meninges, unspecified; J44.9 Chronic obstructive pulmonary disease, unspecified; Z90.710 Acquired absence of both cervix and uterus; Z79.01 Long term (current) use of anticoagulants; Z98.84 Bariatric surgery status; Z88.9 Allergy status to unspecified drugs, medicaments and biological substances
CPT/HCPCS: 36215; 36415; 36416; 36430; 37244; 71045; 74177; 76942; 80053; 83605; 83690; 83735; 84100; 84443; 85014; 85018; 85025; 85610; 85730; 86850; 86900; 86901; 90471; 90647; 90648; 90732; 90733; 93005; 96361; 96374; 96375; C1769; C9113; G0009; J0131; J1644; J2001; J2270; J2405; J3411; P9016; Q0162; Q9967

== ENCOUNTER 2019-05-01 09:13 | Outpatient (CLI) | payer MEDICARE ==
--- NOTE | 2019-05-01 09:30 | RAD ---
EXAM: Chest 2 views: HISTORY: Dyspnea COMPARISON: 02/11/2019 FINDINGS: Mild stable hyperinflation chronic lung changes. Heart size:Within normal limits. Lungs:Clear of acute process. Atherosclerotic changes of the aorta. No confluent pneumonia, overt edema, pleural effusion, pneumothorax, or other significant acute proce ss. IMPRESSION: Atherosclerosis of the aorta. No acute intrathoracic disease.
== END 2019-05-01 09:14 | disposition home or self-care (01) ==
LOC: RAD 09:13
PROVIDERS: ATTEND Internal Medicine Critical Care Medicine
DX: R06.00 Dyspnea, unspecified (principal); I25.10 Atherosclerotic heart disease of native coronary artery without angina pectoris
CPT/HCPCS: 71046

== ENCOUNTER 2020-04-29 10:34 | Outpatient (CLI) | payer MEDICARE ==
--- NOTE | 2020-04-29 11:45 | MMO ---
Bilateral MAMMO Bilat Screen [facility]. CLINICAL HISTORY: Patient is 74 years old and is seen for screening. The patient has no family history of breast cancer. The patient has no personal history of cancer. The patient has a history of right needle biopsy - benign. VIEWS: The views performed were: bilateral craniocaudal with tomosynthesis and bilateral mediolateral oblique with tomosynthesis. This study has been interpreted with the assistance of computer-aided detection. MAMMOGRAM FINDINGS: There are scattered fibroglandular densities. There are benign appearing calcifications seen in both breasts. There are also vascular calcifications. There are no suspicious masses, suspicious calcifications, or new areas of architectural distortion. IMPRESSION: THERE IS NO MAMMOGRAPHIC EVIDENCE OF MALIGNANCY. A ROUTINE FOLLOW-UP MAMMOGRAM IN 1 YEAR IS RECOMMENDED. THE RESULTS OF THIS EXAM WERE SENT TO THE PATIENT. ACR BI-RADS Category 2 - Benign finding MAMMOGRAPHY NOTE: 1. A negative mammogram report should not delay a biopsy if a dominant of clinically suspicious mass is present. 2. Approximately 10% to 15% of breast cancers are not detected by mammography. 3. Adenosis and dense breasts may obscure an underlying neoplasm. Reported by: YOHAN ELDER MD Electonically Signed: [id number]
--- NOTE | 2020-04-29 13:44 | BD ---
DEXA BONE DENSITOMETRY: (Dual energy X-ray Absorptiometry) 04/29/20 HISTORY: 74-year-old white female for postmenopausal, age-related, osteoporosis screening examination. Ht: 6'7. Wt: 160 lb. Age of menopause: 44 years. COMPARISON: None available. FINDINGS: The bone mineral density (BMD) is given in grams per square centimeter (g/cm2): LUMBAR SPINE: BMD(g/cm2) T-score Z-score L1: 0.674 -2.9 -0.7 L2: 0.767 -2.4 0.0 L3: 0.838 -2.2 0.3 L4: 0.979 -0.7 1.9 Total: 0.806 -2.2 0.2 HIP: Femoral neck: 0.489 -3.2 -1.1 Total: 0.530 -3.4 -1.6 IMPRESSION: 1) The mean bone mineral density of the lumbar spine is osteopenic. Fracture risk is increased. 2) The bone mineral density of the femoral neck is osteoporotic. Fracture risk is high. LORI Farris POS: PELON
== END 2020-04-29 10:35 | disposition home or self-care (01) ==
LOC: BICMAMMO 10:34
PROVIDERS: ATTEND Family Medicine
DX: Z12.31 Encounter for screening mammogram for malignant neoplasm of breast (principal); M81.0 Age-related osteoporosis without current pathological fracture; M85.88 Other specified disorders of bone density and structure, other site
CPT/HCPCS: 77063; 77067; 77080